=== PATIENT | female | born 1965 | race Caucasian/White ===

== ENCOUNTER 2023-05-06 15:29 | Emergency (ER) | payer BC ==
[~2023-05-06] VITALS: Ht 165.1 cm; Wt 92.5 kg
[2023-05-06 16:27] VITALS: BP 116/71; PULSE 52; RESP 18; TEMP 97.9; O2SAT 99
[2023-05-06] MEDS: ACETAMINOPHEN EXTRA STRENGTH 500 MG TAB PO ONE (17:44)
== END 2023-05-06 18:56 | disposition home or self-care (01) ==
LOC: MED 15:29
DX: S09.90XA Unspecified injury of head, initial encounter (principal); Z79.899 Other long term (current) drug therapy; W22.8XXA Striking against or struck by other objects, initial encounter; Y93.89 Activity, other specified; Y92.89 Other specified places as the place of occurrence of the external cause; Y99.8 Other external cause status
CPT/HCPCS: 70450; 99284